=== PATIENT | male | born 1950 ===

== ENCOUNTER 2018-04-29 15:43 | Emergency (ER) | payer OTHER ==
[2018-04-29 16:20] VITALS: TEMP 98.5; O2SAT 98
[2018-04-29] MEDS ORDERED: Sodium Chloride 0.9% 1,000 ML IV ONE (17:32)
--- NOTE | 2018-04-29 17:40 | C.PDOC ---
History Of Present Illness 68 years old male presents to ED for complaints of right upper and lower abdominal pain associated with nausea that began today at noon after eating waffles and oranges. Patient states others at home at the same food but did not get sick; however he has not experienced similar symptoms in the past which prompted the ED visit. Patient also reports normal last bowel movement was today. Denies urinary symptoms, back pain, fever, chills, hematemesis, or recent travels. As per , patient has PMHx of kidney failure and HTN. Patient states he sees a neurologist for his kidney condition. Time Seen by Provider: 04/29/18 16:21 Chief Complaint (Nursing): Abdominal Pain History Per: Patient History/Exam Limitations: no limitations Onset/Duration Of Symptoms: Hrs Current Symptoms Are (Timing): Still Present Location Of Pain/Discomfort: RUQ, RLQ Radiation Of Pain To:: None Quality Of Discomfort: "Pain" Associated Symptoms: Nausea. denies: Fever, Chills, Vomiting Exacerbating Factors: None Alleviating Factors: None Last Bowel Movement: Today Recent travel outside of the [place]: No Past Medical History Reviewed: Historical Data, Nursing Documentation, Vital Signs Vital Signs: Last Vital Signs Temp 98.5 F 04/29/18 16:06 Pulse 58 L 04/29/18 16:06 Resp 16 04/29/18 16:06 BP 134/59 L 04/29/18 16:06 Pulse Ox 98 04/29/18 16:06 - Medical History PMH: HTN, Chronic Kidney Disease Surgical History: No Surg Hx Family History: States: No Known Family Hx - Social History Hx Alcohol Use: No Hx Substance Use: No - Immunization History Hx Tetanus Toxoid Vaccination: No Hx Influenza Vaccination: No Hx Pneumococcal Vaccination: No Review Of Systems Constitutional: Negative for: Fever, Chills Gastrointestinal: Positive for: Nausea, Abdominal Pain (Right uppper and lower abdomen ). Negative for: Hematemesis Musculoskeletal: Negative for: Back Pain Skin: Negative for: Rash Neurological: Negative for: Weakness, Numbness Physical Exam - Physical Exam Appears: Non-toxic, No Acute Distress Skin: Normal Color, Warm, Dry, No Rash Head: Atraumatic, Normacephalic Eye(s): bilateral: Normal Inspection, PERRL, EOMI Oral Mucosa: Dry ([place] ) Neck: Normal ROM, Supple Chest: Symmetrical, No Tenderness Cardiovascular: Rhythm Regular, No Murmur Respiratory: Normal Breath Sounds, No Rales, No Rhonchi, No Wheezing Gastrointestinal/Abdominal: Bowel Sounds (Active/normal ), Soft, Tenderness ( Right uppper and lower abdomen ), Distention (Slightly ), No Guarding, No Rebound Back: Normal Inspection, No CVA Tenderness Extremity: Normal ROM, No Pedal Edema Extremity: Bilateral: Atraumatic, Normal Color And Temperature, Normal ROM Pulses: Left Radial: Normal, Right Radial: Normal Neurological/Psych: Oriented x3, Normal Speech, Normal Motor, Normal Sensation, Normal Reflexes Gait: Steady ED Course And Treatment - Laboratory Results Result Diagrams: 04/29/18 18:01 04/29/18 18:01 O2 Sat by Pulse Oximetry: 98 (RA) Pulse Ox Interpretation: Normal - CT Scan/US CT abd Other Rad Studies (CT/US): Read By Radiologist, Radiology Report Reviewed CT/US Interpretation: EXAM: CT Abdomen without IV contrast. IMPRESSION: Multiple subcentimeter tiny calculi within the right kidney. Prominent right extrarenal pelvis. Dilatation of the right ureter. Approximate 5 mm rounded calculus suspected within the right distal ureter. Small calculus in the region of the neck of the gallbladder. Moderately enlarged prostate gland. Atherosclerotic changes present. Chronic disc disease L5-S1 level. Medical Decision Making Medical Decision Making: Plan: * Morphine * IV Fluids * Zofran * Blood work * Urinalysis Re-asses: * Patient states he feels better. Progress: * Blood was found in urine and patient complains of back pain. CT was ordered to rule out stones. 21:00 --Discussed with patient about CT results. Patient will be discharged home with a strainer and toradol. Instructed patient to follow up with PMD and to return if vomiting, fever, or any pain occurs. Disposition Counseled Patient/Family Regarding: Studies Performed, Diagnosis, Need For Followup - Disposition Referrals: Skip Hernandez DO [Staff Provider] - Charlene Hurd MD [Staff Provider] - Disposition: HOME/ ROUTINE Disposition Time: 21:17 Additional Instructions: NAAID REYNA, thank you for letting us take care of you today. Your provider was Balbina Saavedra MD and you were treated for ABDOMINAL PAIN. The emergency medical care you received today was directed at your acute symptoms. If you were prescribed any medication, please fill it and take as directed. It may take several days for your symptoms to resolve. Return to the Emergency Department if your symptoms worsen, do not improve, or if you have any other problems. Please contact your doctor in one day for follow up appointment. Bring any paperwork you were given at discharge with you along with any medications you are taking to your follow up visit. Our treatment cannot replace ongoing medical care by a primary care provider outside of the emergency department. [facility] care today. Prescriptions: Ketorolac Tromethamine [Toradol] 10 mg PO Q6 PRN #20 tab PRN Reason: Pain, Moderate (4-7) Ondansetron ODT [Zofran ODT] 4 mg PO TID PRN #15 odt PRN Reason: Nausea/Vomiting Instructions: Kidney Stones in Adults, Chronic Kidney Disease Forms: [employer] (Italian), General Discharge Instructions - POA Present On Arrival: None - Clinical Impression Clinical Impression: Kidney stone, CKD (chronic kidney disease) - Scribe Statement The provider has reviewed the documentation as recorded by the Scribe Evelin Carranza All medical record entries made by the Scribe were at my direction and personally dictated by me. I have reviewed the chart and agree that the record accurately reflects my personal performance of the history, physical exam, medical decision making, and the department course for this patient. I have also personally directed, reviewed, and agree with the discharge instructions and disposition.
[2018-04-29] MEDS ORDERED: Morphine 4 MG/ML VIAL ONE (18:00)
[2018-04-29] MEDS ORDERED: Sodium Chloride 0.9% 1,000 ML ONE (18:01)
[2018-04-29 18:05] LABS: BASO % 0.3 % (0.0-2.0); HEMOGLOBIN 13.8 g/dL (12.0-18.0); LYMPH # 0.8 K/uL (1.0-4.3); LYMPH % 7.3 % (20.0-40.0); MEAN CELL VOLUME 94.3 fL (80.0-94.0); MEAN CORPUSCULAR HEMOGLOBIN 31.8 pg (27.0-31.0); MEAN CORPUSCULAR HGB CONC 33.7 g/dL (33.0-37.0); MEAN PLATELET VOLUME 9.8 fL (7.2-11.7); MONO # 0.3 K/uL (0.0-0.8); MONO % 2.3 % (0.0-10.0); NEUT # 9.8 K/uL (1.8-7.0); NEUT % 90.1 % (50.0-75.0); PLATELET COUNT 181 K/uL (130-400); RBC 4.34 Mil/uL (4.40-5.90); RED CELL DISTRIBUTION WIDTH 14.1 % (11.5-14.5); WHITE BLOOD COUNT 10.9 K/uL (4.8-10.8)
[2018-04-29 18:12] LABS: PROTHROMBIN TIME 10.9 SECONDS (9.7-12.2)
[2018-04-29 18:13] LABS: URINE BILIRUBIN NEGATIVE (NEGATIVE); URINE BLOOD 1+ (NEGATIVE); URINE CLARITY Clear (Clear); URINE COLOR Yellow (YELLOW); URINE GLUCOSE (UA) NORMAL (Normal); URINE LEUKOCYTE ESTERASE NEG Leu/uL (Negative); URINE PROTEIN NEGATIVE (NEGATIVE); URINE UROBILINOGEN NORMAL mg/dL (0.2-1.0)
[2018-04-29 18:16] LABS: ALB/GLOB RATIO 1.6 (1.0-2.1); ALBUMIN 4.9 g/dL (3.5-5.0)
[2018-04-29 19:05] LABS: BANDS 1 % (0-2); LYMPHOCYTE 4 % (20-40); MONOCYTE 1 % (0-10); NEUTROPHIL 94 % (50-75); PLATELET ESTIMATE NORMAL (NORMAL); TOTAL CELLS COUNTED 100
[2018-04-29 21:38] VITALS: BP 120/60; PULSE 70; RESP 14
--- NOTE | 2018-04-30 08:06 | CT ---
Date of service: 04/29/2018 PROCEDURE: CT Abdomen and Pelvis without intravenous contrast HISTORY: Abdominal pain. Hematuria. COMPARISON: None. TECHNIQUE: Multiple contiguous axial images were performed through the abdomen and pelvis without the use of intravenous contrast. Subsequently, sagittal and coronal reformatted images were obtained. Radiation dose: Total exam DLP = 585.86 mGy-cm. This CT exam was performed using one or more of the following dose reduction techniques: Automated exposure control, adjustment of the mA and/or kV according to patient size, and/or use of iterative reconstruction technique. FINDINGS: LOWER THORAX: Scattered atelectasis and consolidative changes at the lung bases. LIVER: Fatty infiltration of the liver. Few scattered punctate calcifications in the right lobe of the liver. GALLBLADDER AND BILE DUCTS: Cholelithiasis with calculus measuring up to 2.4 millimeters. PANCREAS: Unremarkable. No gross lesion or ductal dilatation. SPLEEN: Unremarkable. ADRENALS: Unremarkable. No mass. KIDNEYS AND URETERS: Right kidney: Moderate right hydroureteronephrosis with obstructing calculus seen within the distal right ureter measuring up to 5 millimeters. Additional multiple scattered calculi seen throughout the right kidney; for example, a midpole calculus measures up to 3 millimeters. Perinephric fat stranding. Few punctate nonobstructive calculi in the left kidney; for example, measuring up to 2 millimeters in the midpole. VASCULATURE: Unremarkable. No aortic aneurysm. Aortic atherosclerotic calcification or mural plaque present. BOWEL: Unremarkable. No obstruction. No gross mural thickening. Scattered colonic diverticuli APPENDIX: Unremarkable. Normal appendix. PERITONEUM: Unremarkable. No free fluid. No free air. LYMPH NODES: Unremarkable. No enlarged lymph nodes. BLADDER: Unremarkable. REPRODUCTIVE: Heterogeneous and prominent prostate with calcifications. Prostate measures up to 4.7 centimeters. BONES: Degenerative changes in the spine. Small bone island in the right iliac bone. OTHER FINDINGS: Small fat containing bilateral inguinal hernias. 6 millimeter calcification at the level of the left inguinal hernia. IMPRESSION: Moderate right hydroureteronephrosis with obstructing calculus seen within the distal right ureter measuring up to 5 millimeters. Additional multiple scattered calculi seen throughout the right kidney; for example, a midpole calculus measures up to 3 millimeters. Perinephric fat stranding. Additional findings as above. A preliminary report was generated at 8:42 p.m. on 04/29/[address] Will Yoo from [facility] rad.
== END 2018-04-29 21:38 | disposition home or self-care (01) ==
LOC: C.ER 15:43
DX: N13.2 Hydronephrosis with renal and ureteral calculous obstruction (principal); N18.9 Chronic kidney disease, unspecified
CPT/HCPCS: 74176; 80053; 81001; 83690; 85025; 85610; 85730; 96361; 96374; 96375; 99284; J2270; J2405; J7030

== ENCOUNTER 2018-05-03 07:23 | Day surgery (SDC) | payer OTHER ==
[2018-05-02 14:49] VITALS: BMI 26.6
[2018-05-03] MEDS ORDERED: Iohexol 240 (50 ml) ONE (08:26)
[2018-05-03] MEDS ORDERED: Lidocaine 2% Jelly (Uro-Jet) ONE (08:26)
[2018-05-03] MEDS ORDERED: Ciprofloxacin 400mg/200ml D5W 400 MG/200 ML BAG IVPB ONE (08:26)
[2018-05-03] MEDS ORDERED: Midazolam 2 MG/2 ML VIAL ONE (09:22)
[2018-05-03] MEDS ORDERED: Propofol 10 mg/ml Inj (20 ML) ONE (09:22)
[2018-05-03] MEDS ORDERED: cefTRIAXone 1 gm 1 GM/100 ML BAG IVPB ONE (09:32)
[2018-05-03] MEDS ORDERED: HYDROmorphone 0.5 mg/0.5 ml ISec IVP PRN (10:12)
[2018-05-03 11:50] VITALS: RESP 18; TEMP 97.6
[2018-05-03 13:37] VITALS: BP 138/67; PULSE 58; O2SAT 100
--- NOTE | 2018-05-03 13:59 | RAD ---
PROCEDURE: HISTORY: As above COMPARISON: None TECHNIQUE: Total continuous fluoroscopic time utilized during the procedure: 27.0 seconds ; 0.42182 mGy m 2 FINDINGS: Submitted images from the current procedure: 14 Please refer to the physician's notes performing the procedure. IMPRESSION: Less than 1 hour fluoroscopic time utilized during performance of the procedure
--- NOTE | 2018-05-03 14:11 | RAD ---
Date of service: 05/03/2018 HISTORY: RT. URETERAL CALCULI COMPARISON: 04/29/2018 FINDINGS: BOWEL: Moderate stool retention. No bowel obstruction appreciated. BONES: Benign-appearing right iliac bone island. L5-S1 mild facet hypertrophic arthrosis right greater than left. The hip arthrosis. OTHER FINDINGS: There are 2 nearly contiguous right hemipelvic calcifications each is approximately 2 mm in size. The prior CT referenced 5 mm distal obstructing right ureteral calculus on the prior CT projected cephalad to this level. CT demonstrated least 1 right hemipelvic phleboliths here the more cephalad expected location of the prior obstructing right ureteral calculus is not seen closer to the inferior right SI joint. Could be partially obscured of the right sacral wing. Its interval passage is favored. Correlate clinically with prior right retrograde/stent findings per the shotblast operator IMPRESSION: No right ureteral 5 mm calculus evident near the inferior right SI joint which was previously a level suggested on the CT exam. There are 2 nearly contiguous smaller right hemipelvic calcifications present least 1 is appreciated on the prior CT in the same location. Interval passage/removal of the prior obstructing right ureteral calculus is favored-clinical correlation recommended.
--- NOTE | 2018-05-03 20:23 | OP ---
PROCEDURE DATE: 05/03/2018 PREOPERATIVE DIAGNOSES: Right distal ureteral calculus with hydronephrosis. POSTOPERATIVE DIAGNOSES: Right distal ureteral calculus with hydronephrosis. PROCEDURES: Cystoscopy and right retrograde pyelography and insertion of right indwelling ureteral stent. SURGEON: Mich Rojas MD. DESCRIPTION OF PROCEDURE: In the holding area, the patient stated that as of this morning that he felt fine. His pain had totally abated, but he was not aware of passing any stones per urethra. The patient was premedicated with 1 gm of Rocephin, brought to the operating room, placed under anesthesia in lithotomy position. A flat plate was performed and I could not clearly define any ureteral calculi. We then performed cystoscopy using a 22-Georgian scope. The anterior and bulbar urethra were normal. The prostate was not obstructing. In the urinary bladder, two tiny stones were seen floating and they were extracted using an Busy Moos evacuator and sent to pathology. Each stone was probably about 2-3 mm in size. I still could not be sure whether these were the previously mentioned stone on the CAT scan and so a right retrograde pyelogram was performed. Despite multiple injections of contrast and using reverse Trendelenburg, there were 1 or 2 filling defects compatible with bubbles or perhaps stones in the mid ureter. Accordingly, I decided to place a ureteral stent. A multilength 6-Georgian stent was passed over a guidewire that had been previously placed up the right kidney and using fluoroscopic and cystoscopic control, the stent was placed with coiling in the right renal pelvis and in the bladder. Urine was sent for culture and sensitivity before and after placing the stent. The patient tolerated procedure well. Mich Rojas MD
== END 2018-05-03 13:27 | disposition home or self-care (01) ==
LOC: C.SDS 07:23
PROVIDERS: ATTEND Urology
DX: N13.2 Hydronephrosis with renal and ureteral calculous obstruction (principal)
CPT/HCPCS: 52005; 52332; 74018; 82365; 87086; 88300; J0744; Q9966

== ENCOUNTER 2018-05-11 08:11 | Day surgery (SDC) | payer OTHER ==
[2018-05-11 08:12] VITALS: BMI 26.6
--- NOTE | 2018-05-11 08:38 | C.PDOC ---
History Of Present Illness 68 year old male presents to the ED referred by Dr. Pat Hurd for OR status post ureteral stent on 05/03. States he was doing well until 05/05 when he had right flank/groin pain with associated vomiting. Reports intermittent discomfort to the right groin since then. Notes improvement compared to 05/05. Denies any fever, chills, hematuria, dysuria, or any other complaints. REFERRED BY DR Pat HURD FOR O.R. S/P URETERAL STENT 05/03. PS WAS DOING WELL UNTIL 05/05, HAD R FLANK/GROIN PAIN +VOMITING. PS W INTERMIT DISCOMFORT R GROIN SINCE THEN, IMPROVED COMPARED TO 05/05. NO FEVER, HEMATURIA. EXAM NEG Time Seen by Provider: 05/11/18 08:28 Chief Complaint (Nursing): Abdominal Pain History Per: Patient History/Exam Limitations: no limitations Onset/Duration Of Symptoms: Days Current Symptoms Are (Timing): Still Present Quality Of Discomfort: "Pain" Associated Symptoms: Vomiting. denies: Fever, Chills, Diarrhea, Urinary Sym ptoms Past Medical History Reviewed: Historical Data, Nursing Documentation, Vital Signs Vital Signs: Last Vital Signs Temp 98.4 F 05/11/18 08:20 Pulse 71 05/11/18 08:20 Resp 98 H 05/11/18 08:20 BP 117/73 05/11/18 08:20 Pulse Ox 16 L 05/11/18 08:20 - Medical History PMH: Kidney Stones, Migraine, Chronic Kidney Disease Denies: HTN Other Surgeries: Ureteral stents Family History: States: No Known Family Hx - Social History Hx Alcohol Use: No Hx Substance Use: No - Immunization History Hx Tetanus Toxoid Vaccination: No Hx Influenza Vaccination: No Hx Pneumococcal Vaccination: No Review Of Systems Except As Marked, All Systems Reviewed And Found Negative. Constitutional: Negative for: Fever, Chills Gastrointestinal: Positive for: Vomiting, Abdominal Pain (groing discomfort ) Genitourinary: Negative for: Dysuria, Hematuria Physical Exam - Physical Exam Appears: Non-toxic, No Acute Distress Skin: Warm, Dry, No Rash Head: Normacephalic Eye(s): bilateral: Normal Inspection Nose: Normal Oral Mucosa: Moist Neck: Normal ROM, Supple Chest: Symmetrical Cardiovascular: Rhythm Regular Respiratory: No Rales, No Rhonchi, No Wheezing, Other (NARD) Gastrointestinal/Abdominal: Soft, No Tenderness, No Guarding, No Rebound Extremity: Bilateral: Atraumatic, Normal Color And Temperature, Normal ROM Neurological/Psych: Oriented x3, Normal Speech Gait: Steady ED Course And Treatment O2 Sat by Pulse Oximetry: 16 - Physician Consult Information Time Consulting Physician Contacted: 08:39 Physician Contacted: Mich Hurd Outcome Of Conversation: C/F DR BARNES. PT TO OR FOR URETEROSCOPY. NO NEED FOR PREOP LABS. Disposition Counseled Patient/Family Regarding: Diagnosis - Disposition Disposition: HOSPITALIZED Disposition Time: 08:36 Condition: STABLE Forms: [email or web address] (Maltese) - POA Present On Arrival: None - Clinical Impression Clinical Impression: Abdominal colic, Pain due to ureteral stent - Scribe Statement The provider has reviewed the documentation as recorded by the Scribpat Tse All medical record entries made by the Dionisioibe were at my direction and personally dictated by me. I have reviewed the chart and agree that the record accurately reflects my personal performance of the history, physical exam, medical decision making, and the department course for this patient. I have also personally directed, reviewed, and agree with the discharge instructions and disposition.
[2018-05-11] MEDS ORDERED: Midazolam 2 MG/2 ML VIAL ONE (12:50)
[2018-05-11] MEDS ORDERED: Propofol 10 mg/ml Inj (20 ML) ONE (12:50)
[2018-05-11] MEDS ORDERED: cefTRIAXone 1 gm 1 GM/100 ML BAG IVPB ONE (12:56)
[2018-05-11] MEDS ORDERED: Iohexol 240 (50 ml) ONE (12:56)
[2018-05-11] MEDS ORDERED: Oxycodone/Acetaminophen 5/325 mg Tab PO PRN (13:26)
[2018-05-11] MEDS ORDERED: HYDROmorphone 0.5 mg/0.5 ml ISec IVP PRN (13:32)
--- NOTE | 2018-05-11 13:37 | RAD ---
Date of service: The 05/11/2018 PROCEDURE: Intraoperative Fluoroscopy. HISTORY: UROLITHIASIS FINDINGS: Fluoroscopic assistance was provided. Fluoroscopy time = 7.3 sec. Radiation dose = 0.68349 mGy-cm. Please refer to the operative report from LINUS Ayoub, , MD DELON.
[2018-05-11] MEDS ORDERED: HYDROmorphone 0.5 mg/0.5 ml ISec ONE (13:51)
[2018-05-11 15:13] VITALS: RESP 16; TEMP 97.6
[2018-05-11 16:31] VITALS: BP 123/64; PULSE 58; O2SAT 96
--- NOTE | 2018-05-28 02:11 | HP ---
REASON FOR ADMISSION: Severe renal colic and stenting. HISTORY OF PRESENT ILLNESS: The patient and I have not met till today, who presented initially with severe pain and renal colic and at that time he was then brought to the hospital and treated by Dr. Bob araujo for a stent insertion. At this point, he is coming in for stent pain, severe pain, and flank pain. We will bring him to the hospital. We are going to admit him as an emergency. We are going to bring him up to the operating room for a cysto and a ureteroscopy, and a possible laser if we find a stone and stent removal. PAST MEDICAL AND SURGICAL HISTORY: As listed in the chart. No history of GA or CVA. SOCIAL HISTORY: Otherwise unremarkable. REVIEW OF SYSTEMS: As listed above, noncontributory. MEDICATIONS: See chart. ALLERGIES: SEE CHART. PHYSICAL EXAMINATION: GENERAL: A well-nourished male, currently resting comfortably. VITAL SIGNS: Within normal limits in the chart. LUNGS: Clear. HEART: S1 and S2. ABDOMEN: Overall, soft and nontender. Flank mass appreciated. GENITOURINARY: Normal male phallus without discharge. No testicular masses. RECTAL: A 20 g prostate, soft and smooth. LABORATORY DATA: See chart. DIAGNOSES: Kidney stone disease, severe colic, and now stenting. PLAN: We have discussed the options with the patient, though we will bring him as an emergency, we are going to bring him to the operating room and perform a ureteroscopy and laser lithotripsy if we find any stones and if not we will consider removal. 1. Antibiotic prophylaxis. 2. Cystoscopy. Further plans will follow. ADDENDUM: See the operative note. I have dictated a separately dictated note of course and at that time, we did a ureteroscopy, removed the stent, but we did not end up finding a stone. We were able to go up and down easily to the kidney. Esteban Hurd MD
--- NOTE | 2018-06-01 13:53 | OP ---
PROCEDURE DATE: 05/11/2018 PREOPERATIVE DIAGNOSES: Urolithiasis, flank pain, severe stent pain, discomfort, and stone disease. POSTOPERATIVE DIAGNOSES: Urolithiasis, flank pain, severe stent pain, discomfort, and stone disease. PROCEDURE: Cystoscopy, removal of a double-J stent, a right ureteroscopy. SURGEON: Esteban Hurd MD COMPLICATIONS: None. BLOOD LOSS: Less than 10 mL. INDICATIONS: See history and physical for details. The patient had a stent placed for severe colic. Now, the initial physician asked me to assess the patient. Meanwhile, the patient is complaining of severe pain that is hurting every time he goes to the bathroom. We discussed the options, he came to the emergency room. The patient called me, we made arrangements, we brought him to the emergency room. I have been history and physical and evaluate for the above-listed procedure. UROLOGY FINDINGS: 1. Normal anterior urethra. No strictures. 2. The verumontanum is minimally visually occlusive. 3. The ureteral orifice looks to be in reasonable location. 4. The orifice is within normal limit with edema. 5. We performed ureteroscopy. We were able to go all the way up to the renal pelvis. I cannot find any definite stone disease. At the termination of the procedure, the patient has no definite stone disease. DESCRIPTION OF PROCEDURE: After obtaining informed consent, the patient was placed on the table. Routine monitor placed. Time-outs were called to confirm the patient and positioning. Prophylactic antibiotics were used. We introduced cystoscope via urethra. Normal anterior urethra. No strictures. The verumontanum is minimally visually occlusive. We identified the old stent. We put a wire up to the kidney and then we went adjacent to the wire with the ureteroscope. We carefully inspected. We had good visualization. The entire procedure was done with the camera and also with the fluoroscopic imaging. We were able to go all the way up to renal pelvis but I do not see any stones within the ureter. At this point, we removed everything. The patient tolerated the procedure without complications. Esteban Hurd MD [facility] # [id number]
--- NOTE | 2018-06-01 15:09 | HP ---
UROLOGY ADMISSION HISTORY AND PHYSICAL REASON FOR ADMISSION: An emergency admission for treatment of stent pain. HISTORY OF PRESENT ILLNESS: Mr. Bell is a very pleasant gentleman, who had presented to another urologist to establish place for stone disease and hydronephrosis. . The patient has presented with voiding dysfunction. He complained a lot of the pain from the stent, everytime he urinates it is hurting him in the bladder and the back. We discussed options We are going to bring him immediately to the OR for cystoscopy, ureteroscopy, and possible laser lithotripsy in the chart. MEDICATIONS: See the chart. ALLERGIES: See the chart. PHYSICAL EXAMINATION: GENERAL: A well-nourished male currently resting on the gurney. VITAL SIGNS: Within normal limits and noted in the chart. LUNGS: Clear. HEART: Normal S1 and S2. ABDOMEN: Overall soft and nontender. Flank mass appreciated. DIAGNOSES: Urolithiasis, hematuria, and severe stent pain and renal colic. PLAN: As follows: We are going to bring the patient to the OR as immediately as possible. We are going to plan for cystoscopy, a retrograde pyelogram, ureteroscopy, laser lithotripsy. We have made everything available as we need it. Depending on what we find. Further plans to follow. Esteban Hurd MD
== END 2018-05-11 16:41 | disposition home or self-care (01) ==
LOC: C.ER 08:11 → C.SDS 08:11
PROVIDERS: ATTEND Urology
DX: N20.1 Calculus of ureter (principal); N18.9 Chronic kidney disease, unspecified; Z87.442 Personal history of urinary calculi
CPT/HCPCS: 52310; 99285; C1769; J0696; J1170; J1580